=== PATIENT | male | born 1955 | race Caucasian/White ===

== ENCOUNTER → 2017-04-08 | Outpatient (CLI) | payer BC ==
--- NOTE | 2017-04-08 14:21 | US ---
EXAMINATION TYPE: US abdomen complete DATE OF EXAM: 04/08/2017 COMPARISON: NONE CLINICAL HISTORY: R74.8 ABN LEVELS OF OTHER SERUM ENZYMES. EXAM MEASUREMENTS: Liver Length: 16.7 cm Gallbladder Wall: not identified cm CBD: 0.7 cm Spleen: 13.7 cm Right Kidney: 12.9 x 5.6 x 5.6 cm Left Kidney: 12.3 x 7.0 x 5.2 cm exam limited by body habitus and midline bowel gas. Pancreas: not identified due to midline bowel gas Liver: limited visualization to intercostal window only. Gallbladder: not identified due to midline bowel gas Evidence for sonographic Carrasco's sign: No CBD: measures 0.7 cm Spleen: wnl Right Kidney: limited visualization of lower pole, no hydro seen Left Kidney: limited visualization of lower pole, no hydro seen Upper IVC: wnl Abd Aorta: wnl IMPRESSION: 1. Limited evaluation as discussed above demonstrates no acute process. Given the limitation of this exam consider CT scan if clinically warranted.
== END | disposition home or self-care (01) ==
LOC: RADUSWWP 12:30
PROVIDERS: ATTEND Family Medicine
DX: R74.8 Abnormal levels of other serum enzymes (principal)
CPT/HCPCS: 76700

== ENCOUNTER → 2017-05-06 | Outpatient (CLI) | payer BC ==
--- NOTE | 2017-05-07 07:39 | CT ---
EXAMINATION TYPE: CT abdomen wo con DATE OF EXAM: 05/06/2017 COMPARISON: Ultrasound dated 04/08/2017 HISTORY: Abnormal enzymes. CT DLP: 852 mGycm Automated exposure control for dose reduction was used. TECHNIQUE: Helical acquisition of images was performed from the lung bases through the top of iliac crest to include entire abdomen. CONTRAST: Performed without Oral Contrast and without IV contrast. FINDINGS: Lack of intravenous and oral contrast limits evaluation of both hollow and solid viscera. LUNG BASES: Focal pleural thickening with associated calcifications is best seen on the coronal image on rRight series 5 image 84 measuring 4.0 cm. On image 88 of the coronal series 5 vessels are seen e xtending to this region in association with the calcifications this may represent round atelectasis i n association with prior asbestos exposure. Punctate calcifications are also seen along the left markie diaphragm pleural surface on series 5 image 76 of the coronal series. Basilar subsegmental atelectasi s and moderate calcifications of the left main and left anterior descending as well as circumflex cor onary arteries are noted with minimal right coronary calcifications. LIVER/GB: The liver is diffusely of low attenuation approaching criteria for hepatic steatosis althou gh this does not meet criteria this time. The gallbladder is contracted with no gross calculi. PANCREAS: No ductal dilatation. SPLEEN: No splenomegaly. ADRENALS: No significant abnormality is seen. KIDNEYS: Ill-defined exophytic right superior pole renal cyst is seen as well as fluid attenuated. Pr obable, one of Omar is also seen on the right. No nephrolithiasis or hydronephrosis. BOWEL: There is a small hiatal hernia present. Follows not enlarged. LYMPH NODES: No significant abnormality is appreciated. OSSEOUS STRUCTURES: Mild to moderate multilevel degenerative changes of the thoracolumbar spine are present with posterior osteophyte and disc bulge at L5-S1 creating mild spinal canal stenosis. Mild c alcific atheromatous changes are seen of the abdominal aorta and its branches. Abdominal aorta is of normal course and caliber. FREE AIR: No free air is visualized. IMPRESSION: 1. FOCAL PLEURAL THICKENING WITH ASSOCIATED CALCIFICATIONS ALONG THE RIGHT LUNG BASE. FINDINGS SUGGES T THIS MAY BE RELATED TO ROUNDED ATELECTASIS IN THE SETTING OF PRIOR ASBESTOS EXPOSURE WITH BILATERAL CALCIFIED PLEURAL PLAQUES. FOLLOW-UP COULD BE PERFORMED IN 6-12 MONTHS TO EVALUATE FOR STABILITY. 2. POORLY DEFINED EXOPHYTIC RIGHT UPPER POLE RENAL CYST. 3. SMALL HIATAL HERNIA. 4. THORACOLUMBAR DEGENERATIVE DISC DISEASE RESULTING IN MILD SPINAL CANAL STENOSIS AT L5-S1.
== END ==
LOC: RADCTMAIN 16:03
PROVIDERS: ATTEND Family Medicine
DX: R74.8 Abnormal levels of other serum enzymes (principal); J98.4 Other disorders of lung; N28.1 Cyst of kidney, acquired; M51.35 Other intervertebral disc degeneration, thoracolumbar region; M48.07 Spinal stenosis, lumbosacral region; K44.9 Diaphragmatic hernia without obstruction or gangrene
CPT/HCPCS: 74150

== ENCOUNTER 2017-08-18 09:44 | Day surgery (SDC) | payer BC ==
[2017-08-14 16:01] VITALS: BMI 41.9
[~2017-08-18 09:44] MED LIST: LACTATED RINGERS 1,000 ML IV SCH; LIDOCAINE 1% 20 ML VIAL (10MG/ML) FOR IV START INTRADERMA PRN
[2017-08-18 10:20] VITALS: RESP 16; TEMP 98.1
[2017-08-18] MEDS ORDERED: LIDOCAINE 1% INJ 10MG/ML (20 ML MDV) ONE (10:50)
[2017-08-18] MEDS ORDERED: PROPOFOL 10 MG/ML 20 ML VIAL IV ONE (10:50)
--- NOTE | 2017-08-18 11:31 | P.PCN ---
Date of Procedure: 08/18/17 Procedure(s) Performed: Procedure: Colonoscopy and polypectomy. Preoperative diagnosis: Screening for neoplasia. Postoperative diagnosis: 1. Sigmoid diverticulosis with no evidence of acute diverticulitis or strictures. 2. Small hepatic flexure polyp snared but no large polyps or cancer. Preparation: HalfLytely prep. Sedation: Was provided by anesthesia. Brief clinical history: The patient is a 62-year-old male who is scheduled for this evaluation for screening for neoplasia because of age and history of polyps as risk factors. The patient has no abdominal complaints, bleeding or anemia. His last colonoscopy was around 5 years ago. Procedure: With the patient on his left lateral decubitus position and after informed consent and adequate sedation, the perianal area was inspected and it did not show any fissures or fistulas. There were no masses felt on digital rectal examination. The Olympus CFQ 160L video colonoscope was then inserted in the rectum in the usual fashion and advanced to the cecum. There was a small polyp around the hepatic flexure which I snared and retrieved by suction but there were no large polyps or cancer. Multiple diverticular orifices were seen scattered in the sigmoid but I saw no evidence of acute diverticulitis or strictures. I retroflexed the endoscope in the rectum before the endoscope was withdrawn. The patient tolerated the procedure well. Plan: The patient was reassured. Discussed dietary measures. He will follow up with you as planned and I recommended repeat exam in 5 years.
[2017-08-18 11:45] VITALS: BP 121/80; PULSE 59
== END 2017-08-18 12:03 | disposition home or self-care (01) ==
LOC: ORWHC2ENDO 09:44
DX: Z12.11 Encounter for screening for malignant neoplasm of colon (principal); D12.3 Benign neoplasm of transverse colon; K57.30 Diverticulosis of large intestine without perforation or abscess without bleeding; Z86.010 Personal history of colon polyps; I10 Essential (primary) hypertension; M10.9 Gout, unspecified; Z79.899 Other long term (current) drug therapy
CPT/HCPCS: 88305; 45385; J2001; J2704

== ENCOUNTER 2018-08-21 15:10 | Emergency (ER) | payer BC ==
[2018-08-21 15:34] VITALS: BP 112/73; PULSE 102; RESP 18; TEMP 98
[2018-08-21] MEDS ORDERED: HEPARIN SODIUM,PORCINE 5,000 UNIT/ML 1 ML VIAL IV PRN (15:55)
[2018-08-21] MEDS ORDERED: HEPARIN SODIUM,PORCINE 10,000 UNIT/ML 1 ML VIAL IV ONE (15:55)
--- NOTE | 2018-08-21 15:59 | ED ---
General Adult HPI - General Chief complaint: Shortness of Breath Stated complaint: SYED Time Seen by Provider: 08/21/18 15:40 Source: patient Mode of arrival: ambulatory Limitations: no limitations - History of Present Illness Initial comments: Dictation was produced using norin[employer] dictation software. please excuse any grammatical, word or spelling errors. Chief Complaint: 63-year-old male past medical history of hypertension and gout presents with exertional shortness of breath History of Present Illness: 63-year-old male presents with exertional shortness of breath. Patient has been having symptoms for the last 3 days. He initially noted his symptoms when mowing the grass. States he become progressively short of breath since onset of his symptoms. He initially was concerned that symptoms are secondary to environmental exposure from grass cutting. Denies any chest pain. He did have an episode of night sweats last night. Patient denies any history of blood clots. Does report that he has swelling in his right lower extremity. Patient's sits in a chair for prolonged hours for work. No family history of blood clots. Patient denies any cardiac disease. Patient reports that he feels comfortable at rest. The ROS documented in this emergency department record has been reviewed and confirmed by me. Those systems with pertinent positive or negative responses have been documented in the HPI. All other systems are other negative and/or noncontributory. PHYSICAL EXAM: General Impression: Alert and oriented x3, not in acute distress HEENT: Normocephalic atraumatic, extra-ocular movements intact, pupils equal and reactive to light bilaterally, mucous membranes moist. Cardiovascular: Heart regular rate and rhythm, S1&S2 audible, no murmurs, rubs or gallops Chest: Lungs clear to auscultation bilaterally, no rhonchi, no wheeze, no rales Abdomen: Bowel sounds present, abdomen soft, non-tender, non-distended, no organomegaly Musculoskeletal: Pulses present and equal in all extremities, a symmetrical enlargement in girth of the right mid tib-fib area compared to the left Motor: no focal deficits noted Neurological: CN II-XII grossly intact, no focal motor or sensory deficits noted Skin: Intact with no visualized rashes Psych: Normal affect and mood ED course: 63-year-old male with strong clinical suspicion of deep venous thrombosis with pulmonary embolus. On arrival shows heart rate of 12 cumbersome vital signs within acceptable limits. Patient started on heparin immediately. Return evaluation obtained. CBC is unremarkable. Slight thrombus a P1 18. It also appears to be erythrocytosis with macrocytosis. Coag panel is unremarkable. Metabolic panel shows slight elevation of renal markers. Troponin elevated 0.238 with a prematurity peptide of 6000. She is no acute ultrasound venous Doppler shows the venous thrombosis in the right lower extremity. CT angios the chest shows multiple pulmonary emboli. Patient be transferred to [facility] for submassive PE. Patient was admitted recently started on heparin and will be continued in route to [facility]. Accepting physician is Dr. Maru Changaren [place] emergency department. EKG interpretation: Ventricular rate 100, normal sinus rhythm,. Interval 156, QS 100, QTC 505. No HI prolongation, no ST. multiple T-wave inversions seen in the precordial leads and inferior leads. Prolonged QT - Related Data Home Medications Medication Instructions Recorded Confirmed Allopurinol [Zyloprim] 100 mg PO DAILY 08/14/17 08/21/18 Losartan-Hctz 50-12.5 mg [Hyzaar 1 each PO DAILY 08/14/17 08/21/18 50-12.5] Ibuprofen [Motrin Ib] 200 mg PO Q6H 08/21/18 08/21/18 Allergies Allergy/AdvReac Type Severity Reaction Status Date / Time No Known Allergies Allergy Verified 08/21/18 16:20 Review of Systems ROS Statement: Those systems with pertinent positive or pertinent negative responses have been documented in the HPI. ROS Other: All systems not noted in ROS Statement are negative. Past Medical History Past Medical History: Hypertension Additional Past Medical History / Comment(s): GOUT, History of Any Multi-Drug Resistant Organisms: None Reported Past Surgical History: Orthopedic Surgery Additional Past Surgical History / Comment(s): elbow sx, INDEX FINGER, BUNIONECTOMY AND STRAIGHTENED TOE Past Anesthesia/Blood Transfusion Reactions: No Reported Reaction Past Psychological History: No Psychological Hx Reported Smoking Status: Never smoker Past Alcohol Use History: None Reported Past Drug Use History: None Reported - Past Family History Sister(s) Family Medical History: Cancer General Exam Limitations: no limitations Course Vital Signs 08/21/18 15:32 Temperature 98.0 F Pulse Rate 102 H Respiratory 18 Rate Blood Pressure 112/73 O2 Sat by Pulse 96 Oximetry Medical Decision Making - Lab Data Result diagrams: 08/21/18 16:14 08/21/18 16:14 Lab Results 08/21/18 08/21/18 08/21/18 Range/Units 16:14 16:14 16:14 WBC 7.3 (3.8-10.6) k/uL RBC 5.27 (4.30-5.90) m/uL Hgb 18.4 H (13.0-17.5) gm/dL Hct 53.6 H (39.0-53.0) % MCV 101.8 H (80.0-100.0) fL MCH 35.0 (25.0-35.0) pg MCHC 34.4 (31.0-37.0) g/dL RDW 16.3 H (11.5-15.5) % Plt Count 118 L (150-450) k/uL Neutrophils % 71 % Lymphocytes % 16 % Monocytes % 7 % Eosinophils % 4 % Basophils % 1 % Neutrophils # 5.1 (1.3-7.7) k/uL Lymphocytes # 1.2 (1.0-4.8) k/uL Monocytes # 0.5 (0-1.0) k/uL Eosinophils # 0.3 (0-0.7) k/uL Basophils # 0.1 (0-0.2) k/uL Anisocytosis Slight Macrocytosis Slight PT 13.4 H (9.0-12.0) sec INR 1.3 H (<1.2) APTT 27.8 (22.0-30.0) sec Sodium 136 L (137-145) mmol/L Potassium 3.8 (3.5-5.1) mmol/L Chloride 102 (98-107) mmol/L Carbon Dioxide 24 (22-30) mmol/L Anion Gap 10 mmol/L BUN 24 H (9-20) mg/dL Creatinine 1.74 H (0.66-1.25) mg/dL Est GFR (CKD-EPI)AfAm 48 (>60 ml/min/1.73 sqM) Est GFR (CKD-EPI)NonAf 41 (>60 ml/min/1.73 sqM) Glucose 93 (74-99) mg/dL Calcium 8.6 (8.4-10.2) mg/dL Magnesium 1.3 L (1.6-2.3) mg/dL Total Bilirubin 3.4 H (0.2-1.3) mg/dL AST 36 (17-59) U/L ALT 16 L (21-72) U/L Alkaline Phosphatase 91 (38-126) U/L Troponin I (0.000-0.034) ng/mL NT-Pro-B Natriuret Pep pg/mL Total Protein 6.9 (6.3-8.2) g/dL Albumin 3.5 (3.5-5.0) g/dL 08/21/18 08/21/18 Range/Units 16:14 16:14 WBC (3.8-10.6) k/uL RBC (4.30-5.90) m/uL Hgb (13.0-17.5) gm/dL Hct (39.0-53.0) % MCV (80.0-100.0) fL MCH (25.0-35.0) pg MCHC (31.0-37.0) g/dL RDW (11.5-15.5) % Plt Count (150-450) k/uL Neutrophils % % Lymphocytes % % Monocytes % % Eosinophils % % Basophils % % Neutrophils # (1.3-7.7) k/uL Lymphocytes # (1.0-4.8) k/uL Monocytes # (0-1.0) k/uL Eosinophils # (0-0.7) k/uL Basophils # (0-0.2) k/uL Anisocytosis Macrocytosis PT (9.0-12.0) sec INR (<1.2) APTT (22.0-30.0) sec Sodium (137-145) mmol/L Potassium (3.5-5.1) mmol/L Chloride (98-107) mmol/L Carbon Dioxide (22-30) mmol/L Anion Gap mmol/L BUN (9-20) mg/dL Creatinine (0.66-1.25) mg/dL Est GFR (CKD-EPI)AfAm (>60 ml/min/1.73 sqM) Est GFR (CKD-EPI)NonAf (>60 ml/min/1.73 sqM) Glucose (74-99) mg/dL Calcium (8.4-10.2) mg/dL Magnesium (1.6-2.3) mg/dL Total Bilirubin (0.2-1.3) mg/dL AST (17-59) U/L ALT (21-72) U/L Alkaline Phosphatase (38-126) U/L Troponin I 0.238 H* (0.000-0.034) ng/mL NT-Pro-B Natriuret Pep 6060 pg/mL Total Protein (6.3-8.2) g/dL Albumin (3.5-5.0) g/dL Disposition Clinical Impression: Pulmonary emboli Disposition: OTHER INSTITUTION NOT DEFINED Condition: Critical Referrals: Uzair Gregorio DO [Primary Care Provider] - 1-2 days Time of Disposition: 17:40 - Out of Hospital Transfer - Req. Specs Out of Hospital Transfer - Requested Specifics: Other Emergency Center ([facility])
[2018-08-21] MEDS ORDERED: HEPARIN SOD,PORK IN 0.45% NACL 25,000 UNIT in 0.45% NACL 1 250ML.BAG IV SCH (16:00)
--- NOTE | 2018-08-21 16:28 | XR ---
EXAMINATION TYPE: XR chest 1V portable DATE OF EXAM: 08/21/2018 HISTORY: Shortness of breath. COMPARISON: None. TECHNIQUE: Single view of the chest is submitted. FINDINGS: Demonstrated are scattered senescent parenchymal change. There is no evidence for focal infiltrate. The heart is stable. Hilar and mediastinal structures are within normal limits. Degenerative changes are seen of the dorsal spine. IMPRESSION: 1. Chronic changes without evidence for acute pulmonary disease.
[2018-08-21 16:39] LABS: Anisocytosis Slight; Basophils # (A) 0.1 k/uL (0-0.2); Basophils % (A) 1 %; Eosinophils # (A) 0.3 k/uL (0-0.7); Eosinophils % (A) 4 %; HCT 53.6 % (39.0-53.0); HGB 18.4 gm/dL (13.0-17.5); Lymphocytes # (A) 1.2 k/uL (1.0-4.8); Lymphocytes % (A) 16 %; MCHC 34.4 g/dL (31.0-37.0); MCV 101.8 fL (80.0-100.0); Macrocytosis Slight; Mean Platelet Volume 6.8; Monocytes # (A) 0.5 k/uL (0-1.0); Monocytes % (A) 7 %; Neutrophils # (A) 5.1 k/uL (1.3-7.7); Neutrophils % (A) 71 %; Platelet Count 118 k/uL (150-450); RBC 5.27 m/uL (4.30-5.90); RDW 16.3 % (11.5-15.5); WBC 7.3 k/uL (3.8-10.6)
[2018-08-21 16:46] LABS: INR 1.3 (<1.2); Partial Thromboplastin Time 27.8 sec (22.0-30.0); Prothrombin Time 13.4 sec (9.0-12.0)
[2018-08-21 16:51] LABS: Albumin 3.5 g/dL (3.5-5.0); Calcium 8.6 mg/dL (8.4-10.2); Magnesium 1.3 mg/dL (1.6-2.3); Potassium 3.8 mmol/L (3.5-5.1); Total Bilirubin 3.4 mg/dL (0.2-1.3); Total Protein 6.9 g/dL (6.3-8.2)
--- NOTE | 2018-08-21 17:03 | US ---
EXAMINATION TYPE: US venous doppler duplex LE RT DATE OF EXAM: 08/21/2018 3:57 PM COMPARISON: NONE CLINICAL HISTORY: Pain. rt lower leg swelling SIDE PERFORMED: Right TECHNIQUE: The lower extremity deep venous system is examined utilizing real time linear array sonog doreen with graded compression, doppler sonography and color-flow sonography. VESSELS IMAGED: External Iliac Vein (EIV) Common Femoral Vein Deep Femoral Vein Greater Saphenous Vein * Femoral Vein Popliteal Vein Proximal Calf Veins (* superficial vessels) Right Leg: POSITIVE for DVT from mid FV through prox calf veins the vessels are distended with throm bus and non compressible. IMPRESSION: There is evidence of acute deep venous thrombosis in the right leg involving femoral and popliteal vein extending into the tibial veins.
--- NOTE | 2018-08-21 17:41 | CT ---
EXAMINATION TYPE: CT angio chest DATE OF EXAM: 08/21/2018 5:32 PM COMPARISON: None HISTORY: SOB CT DLP: 974.3 mGycm Automated exposure control for dose reduction was used. CONTRAST: CTA scan of the thorax is performed with IV Contrast, patient injected with 80 mL of Isovue 370, pulm onary embolism protocol. There are 3-D post processed images.. FINDINGS: There is some mild atelectasis right lower lobe. Heart size is normal. There is no pericardial effusi on. There is no pleural effusion. There is no evidence of a pulmonary mass. There is no mediastinal a denopathy. Thoracic aorta appears intact without evidence of aneurysm or dissection. There are multiple large filling defects in the branches of the upper and lower lobe pulmonary arteri es bilaterally. The bony thorax is intact. There is some spurring in the thoracic spine. IMPRESSION: THERE IS INFILTRATE AND ATELECTASIS RIGHT LOWER LOBE. EXTENSIVE BILATERAL UPPER AND LOWER LOBE PULMONARY EMBOLI. THIS EXAM WAS DISCUSSED WITH ER PHYSICIAN AT 5:45 PM.
== END 2018-08-21 18:35 | disposition other institution (70) ==
LOC: EC 15:10
DX: I26.99 Other pulmonary embolism without acute cor pulmonale (principal); I10 Essential (primary) hypertension; M10.9 Gout, unspecified; Z79.1 Long term (current) use of non-steroidal anti-inflammatories (NSAID); Z79.899 Other long term (current) drug therapy
CPT/HCPCS: 36415; 93005; 83880; 80053; 83735; 84484; 85025; 85610; 85730; 71045; 93971; 71275; 99285; 96365; 96366; 96376; J1644 ×2; Q9967

== ENCOUNTER → 2019-12-07 | Outpatient (CLI) | payer BC ==
--- NOTE | 2019-12-08 11:47 | NM ---
Nuclear medicine hepatobiliary scan. HISTORY: Pain. DOSAGE: The patient received 5.3 mCi of Technetium 99m Choletec. FINDINGS: There is normal hepatic extraction. The gallbladder is not seen at 3 1/2 hours. There is b iliary to bowel clearance at 20 minutes. IMPRESSION: 1. Correlate for cholecystitis
== END | disposition home or self-care (01) ==
LOC: RADNMMAIN 14:50
PROVIDERS: ATTEND Family Medicine
DX: R10.11 Right upper quadrant pain (principal); R74.8 Abnormal levels of other serum enzymes; R94.5 Abnormal results of liver function studies
CPT/HCPCS: 78226; A9537

== ENCOUNTER → 2020-07-10 | Outpatient (CLI) | payer BC | END | disposition home or self-care (01) | LOC: LABWHC1 16:54 | PROVIDERS: ATTEND Family Medicine | DX: Z20.822 Contact with and (suspected) exposure to COVID-19 (principal) | CPT/HCPCS: U0003; C9803 ==

== ENCOUNTER → 2020-12-19 | Outpatient (CLI) | payer BC ==
--- NOTE | 2020-12-19 08:48 | US ---
EXAMINATION TYPE: US abdomen complete DATE OF EXAM: 12/19/2020 COMPARISON: US, CT CLINICAL HISTORY: I71.4 AAA,R94.5 ELEVATED LFTS. AAA and elevated LFTs per order. EXAM MEASUREMENTS: Liver Length: 18.75 cm Spleen: 12.6 cm Right Kidney: 10.1 x 6.0 x 5.1 cm Left Kidney: 10.3 x 5.2 x 5.2 cm Exam is technically difficult and limited due to patient body habitus and overlying bowel gas. Pancreas: Obscured. Liver: Appears coarse and enlarged. Increased echogenicity. Limited. Gallbladder: Not visualized. Evidence for sonographic Carrasco's sign: No. CBD: Obscured. Spleen: Appears wnl. Right Kidney: Limited. No hydronephrosis or masses seen Left Kidney: Limited. No hydronephrosis or masses seen Upper IVC: Appears wnl Abd Aorta: Prox, mid and iliacs obscured. Limited visibility of distal measures 2.0 x 2.0 cm. IMPRESSION: 1. Moderate fatty infiltration of the liver and hepatomegaly. 2. Abdominal aorta is essentially nondiagnostic due to overlying bowel gas. Consider CT to evaluate t he aorta.
== END | disposition home or self-care (01) ==
LOC: RADUSWWP 07:53
PROVIDERS: ATTEND Family Medicine
DX: K76.0 Fatty (change of) liver, not elsewhere classified (principal); R16.0 Hepatomegaly, not elsewhere classified
CPT/HCPCS: 76700

== ENCOUNTER 2021-10-23 08:25 | Emergency (ER) | payer BC ==
[2021-10-23 08:32] VITALS: BP 134/82; PULSE 92; RESP 18; TEMP 98
[2021-10-23] MEDS ORDERED: LIDOCAINE 1% INJ 10MG/ML (5 ML VIAL-PF) SQ ONE (09:18)
[2021-10-23] MEDS ORDERED: DIPH,PERTUS(ACELL)TETVAC-LF 0.5 ML VIAL IM ONE (09:18)
--- NOTE | 2021-10-23 09:56 | ED ---
Fall HPI - General Chief Complaint: Fall Stated Complaint: fall, shoulder pain & nosebleed Time Seen by Provider: 10/23/21 08:57 Source: patient, RN notes reviewed Mode of arrival: ambulatory - History of Present Illness Initial Comments: This is a 66-year-old male who presents to the emergency department for a fall. States that he was walking off of his porch this morning, when he missed the bottom step and fell onto his right shoulder. Denies hitting his head or any loss of consciousness. He is not taking any blood thinners. He is redoing the pavement, and states that there is a significant amount of gravel in the area as well. He ended up sustaining a laceration to the upper lip, which he believes is from a rock or a piece of gravel on the ground. He received his tetanus vaccine less than 5 days ago. Denies any fevers, chills, sore throat, cough, dyspnea, chest pain, palpitations, abdominal pain, nausea, vomiting, diarrhea, back pain, or headaches. MD Complaint: fall Fall From: standing When Fall Occurred: just prior to arrival Place Fall Occurred: home Loss of Consciousness: none Prolonged Down Time?: no Symptoms Prior to Fall: none Location: face (lip) Location - Extremities: Right: Shoulder Context: tripped/slipped - Related Data Home Medications Medication Instructions Recorded Confirmed Losartan-Hctz 50-12.5 mg [Hyzaar 1 each PO DAILY 08/14/17 08/21/18 50-12.5] allopurinoL [Zyloprim] 100 mg PO DAILY 08/14/17 08/21/18 Ibuprofen [Motrin Ib] 200 mg PO Q6H 08/21/18 08/21/18 Allergies Allergy/AdvReac Type Severity Reaction Status Date / Time No Known Allergies Allergy Verified 10/23/21 08:33 Review of Systems ROS Statement: Those systems with pertinent positive or pertinent negative responses have been documented in the HPI. ROS Other: All systems not noted in ROS Statement are negative. Past Medical History Past Medical History: Hypertension Additional Past Medical History / Comment(s): GOUT, History of Any Multi-Drug Resistant Organisms: None Reported Past Surgical History: Orthopedic Surgery Additional Past Surgical History / Comment(s): elbow sx, INDEX FINGER, BUNIONECTOMY AND STRAIGHTENED TOE Past Anesthesia/Blood Transfusion Reactions: No Reported Reaction Past Psychological History: No Psychological Hx Reported Smoking Status: Never smoker Past Alcohol Use History: Daily Past Drug Use History: None Reported - Past Family History Sister(s) Family Medical History: Cancer General Exam Limitations: no limitations General appearance: alert, in no apparent distress Head exam: Present: atraumatic, normocephalic, normal inspection Eye exam: Present: normal appearance, PERRL, EOMI. Absent: scleral icterus, conjunctival injection, periorbital swelling Respiratory exam: Present: normal lung sounds bilaterally. Absent: respiratory distress, wheezes, rales, rhonchi, stridor Cardiovascular Exam: Present: regular rate, normal rhythm, normal heart sounds. Absent: systolic murmur, diastolic murmur, rubs, gallop, clicks Right Shoulder Exam: Present: tenderness, swelling (minor). Absent: full ROM (secondary to pain), abrasion, laceration, deformity, crepitus, dislocation Vascular: Present: normal capillary refill. Absent: vascular compromise, Pallo, pulse deficit radial art Neurological exam: Present: alert, oriented X3, CN II-XII intact Psychiatric exam: Present: normal affect, normal mood Skin exam: Present: other (L-shaped laceration above the left side of the upper lip, measuring a total of 4 cm, 2cm on each side of the "L".) Course Vital Signs 10/23/21 08:26 Temperature 98 F Pulse Rate 92 Respiratory 18 Rate Blood Pressure 134/82 O2 Sat by Pulse 96 Oximetry Procedures - Laceration Laceration #1 Consent Obtained: verbal consent Indication: laceration Site: lip Size (cm): 4 Description: stellate Depth: simple, single layer Anesthetic Used: lidocaine 1% Anesthesia Technique: local infiltration Amount (mls): 3 Pre-repair: wound explored Type of Sutures: nylon Size of Sutures: 5-0 Number of Sutures: 5 Technique: simple, interrupted Medical Decision Making - Medical Decision Making This is a 66-year-old male who presents to the emergency department with right shoulder pain and a laceration above the upper lip. Tetanus status is UTD. The laceration was repaired with 5 sutures. X-ray of the right shoulder obtained revealing no acute bony abnormalities. Instructed the patient to ice the shoulder for the first 2 days followed by heat there afterwards. He should alternate with Tylenol and ibuprofen as needed for pain. Starter pack for ibuprofen and Tylenol #3 provided. Advised he only take the Tylenol #3 at night until he knows how it affects him, as it may make him drowsy. He should also avoid driving or operating machinery when taking this. He will return for suture removal in 7-10 days. Return precautions reviewed in depth, the patient is instructed to return to the emergency department with any new, worsening, or concerning symptoms. Patient verbalized understanding. This case was discussed in detail with the attending ED physician. Presentation, findings, and treatment plan discussed in detail as well. - Radiology Data Radiology results: report reviewed, image reviewed Disposition Clinical Impression: Laceration, Contusion of shoulder, right Disposition: HOME SELF-CARE Instructions (If sedation given, give patient instructions): Care For Your Stitches (ED), Fall Prevention (ED) Additional Instructions: Return to the emergency department with any new, worsening, or concerning symptoms and in 7-10 days for removal of your stitches. Ice the shoulder and other areas of pain for the first 2 days followed by heat there afterwards. Take ibuprofen and Tylenol as needed for pain relief. Take the Tylenol with Codeine when you know you will not be driving or operating machinery, as it can make you sleepy/groggy. Is patient prescribed a controlled substance at d/c from ED?: No Referrals: Uzair Gregorio DO [Primary Care Provider] - 1-2 days
--- NOTE | 2021-10-23 10:06 | XR ---
EXAMINATION TYPE: XR shoulder complete RT DATE OF EXAM: 10/23/2021 COMPARISON: CTA chest 08/21/2018 INDICATION: Patient age:Male; 66 years old; Reason for study: Pain after fall; TECHNIQUE: The right shoulder was examined in AP, internally rotated and scapular Y projections. . FINDINGS: No evidence of acute osseous pathology, joint dislocation, or soft tissue swelling. Moderate degenera tive changes of the glenohumeral joint and AC joint. The remaining portions of the visualized chest a re unremarkable. IMPRESSION: No acute osseous pathology. Moderate degenerative changes of the glenohumeral joint and AC joint.
[2021-10-23] MEDS ORDERED: IBUPROFEN 600 MG STARTER PACK 4 TAB BTL PO STA (10:43)
[2021-10-23] MEDS ORDERED: ACET/COD 300 MG/30 MG STARTER PACK 6 TAB BTL PO STA (10:43)
== END 2021-10-23 10:52 | disposition home or self-care (01) ==
LOC: EC 08:25
DX: S01.511A Laceration without foreign body of lip, initial encounter (principal); S40.011A Contusion of right shoulder, initial encounter; I10 Essential (primary) hypertension; Z72.89 Other problems related to lifestyle; Z79.899 Other long term (current) drug therapy; W10.9XXA Fall (on) (from) unspecified stairs and steps, initial encounter
CPT/HCPCS: 73030; 99284; 12013; J2001